=== PATIENT | male | born 1955 | race Caucasian/White ===

== ENCOUNTER → 2017-06-06 | Outpatient (CLI) | payer BC ==
--- NOTE | 2017-06-06 08:24 | CARDIOVASCULAR REPORT ---
"Cerebrovascular Exam Indications: 780.2 Syncope and collapse. IMPRESSIONS 1. Study suggests 20-49%(Lower end of scale)stenosis involving the right internal carotid artery. 2. Study suggests less than 20% stenosis involving the left internal carotid artery. 3. Study suggests occlusion involving the left vertebral artery. History: Syncope. Coronary artery disease. Risk factors: Current tobacco use. Hypertension. Carotid duplex study. Complete study and Doppler flow study including spectral analysis, color and barnard scale imaging. Height: Height: 162.6cm. Height: 64in. Weight: Weight: 61.7kg. Weight: 135.7lb. Body mass index: BMI: 23.3kg/m^2. Body surface area: BSA: 1.68m^2. Location: Vascular laboratory. Patient status: Outpatient. Tables: Arterial flow: + +--------+--------+ |Location |V sys |V ed | + +--------+--------+ |Right CCA - proximal|94.3cm/s|30.6cm/s| + +--------+--------+ |Right CCA - distal |69.1cm/s|24.4cm/s| + +--------+--------+ |Right ECA |92.9cm/s|--------| + +--------+--------+ |Right ICA - proximal|105cm/s |38.4cm/s| + +--------+--------+ |Right ICA - mid |101cm/s |37.7cm/s| + +--------+--------+ |Right ICA - distal |92.9cm/s|33.5cm/s| + +--------+--------+ |Right vertebral |67.7cm/s|--------| + +--------+--------+ |Left CCA - proximal |92.9cm/s|30cm/s | + +--------+--------+ |Left CCA - distal |103cm/s |34.9cm/s| + +--------+--------+ |Left ECA |97.1cm/s|--------| + +--------+--------+ |Left ICA - proximal |102cm/s |33.5cm/s| + +--------+--------+ |Left ICA - mid |96.4cm/s|35.6cm/s| + +--------+--------+ |Left ICA - distal |90.8cm/s|30cm/s | + +--------+--------+ Velocity ratios: + + + + + + | |Right, V sys|Right, V ed|Left, V sys|Left, V ed| + + + + + + |Max ICA/dist CCA|1.52 |1.57 |0.99 |1.02 | + + + + + + (Report amended ) Electronically signed by: Massimo Kaufman [id number]"
== END ==
LOC: RT 07:47
DX: R55 Syncope and collapse (principal); I10 Essential (primary) hypertension; I25.10 Atherosclerotic heart disease of native coronary artery without angina pectoris